=== PATIENT | female | born 1950 | race Caucasian/White ===

== ENCOUNTER 2023-12-20 09:00 | Day surgery (SDC) | payer MEDICARE ==
[~2023-12-20 09:00] MED LIST: Lactated Ringers 1,000 ML ONE; Midazolam 1 MG/ML 2 ML SDV ONE; Propofol 200 MG/20 ML SDV ONE; ceFAZolin 2 GM Vial ONE
[2023-12-20] MEDS ORDERED: dexmedeTOMIDine HCl 200 MCG/2 ML SDV ONE (09:15)
[2023-12-20] MEDS ORDERED: Ropivacaine 0.5% 5 MG/ML 30 ML SDV ONE (09:15)
[2023-12-20] MEDS ORDERED: EPINEPHrine 1 MG/ML SDV ONE (09:15)
[2023-12-20] MEDS: Lactated Ringers 1,000 ML IV SCH (09:20)
[2023-12-20] MEDS ORDERED: Sodium Chloride 0.9% 10 ML Syringe FLUSH PRN (09:35)
[2023-12-20] MEDS ORDERED: fentaNYL 100 MCG/2 ML SDV IVPUSH PRN ×2 (09:44→12:38)
[2023-12-20] MEDS ORDERED: HYDROmorphone 0.5 MG/0.5 ML Syringe IVPUSH PRN ×2 (09:44→12:38)
[2023-12-20] MEDS ORDERED: ePHEDrine 50 MG/ML SDV ONE (10:51)
[2023-12-20] MEDS ORDERED: Phenylephrine 1% 10 MG/ML SDV ONE (11:00)
[2023-12-20] MEDS ORDERED: Propofol 200 MG/20 ML SDV ONE (11:44)
[2023-12-20] MEDS: Tranexamic Acid 1,000 MG/10 ML Vial ONE (11:55)
[2023-12-20] MEDS: Vancomycin 1 GM SDV ONE (11:55)
[2023-12-20] MEDS: Morphine 8 MG, EPINEPHrine 0.3 MG, Cefuroxime 750 MG, Ketorolac 30 MG, Sodium Chloride ... PRN (11:55)
[2023-12-20] MEDS ORDERED: Ondansetron 4 MG/2 ML SDV IVPUSH PRN (12:38)
[2023-12-20] MEDS: oxyCODONE 5 MG Tab PO PRN (13:57)
[2023-12-20] MEDS: Ondansetron 4 MG/2 ML SDV IVPUSH PRN (14:01)
[2023-12-20] MEDS: Ondansetron 4 MG/2 ML SDV IVPUSH SCH (14:43)
[2023-12-20] MEDS: Haloperidol Lactate 5 MG/ML SDV IVPUSH ONE (16:07)
[2023-12-20] MEDS: Sodium Chloride 0.9% 10 ML Syringe FLUSH SCH (20:49)
== END 2023-12-21 08:06 ==
LOC: JD.SDS 09:00 → JD.MS 17:23 → JD.SDS 12-21 08:06
PROVIDERS: ATTEND Orthopaedic Surgery
DX: M17.12 Unilateral primary osteoarthritis, left knee (principal); I10 Essential (primary) hypertension; E78.2 Mixed hyperlipidemia; Z79.899 Other long term (current) drug therapy
CPT/HCPCS: 0055T; 27447; 64447; 73560; A9270; C1713; C1776; J0171; J0690; J0697; J1630; J1885; J2250; J2270; J2371; J2405; J2704; J2795; J3370; J3490; J7120; 01402; 99100